=== PATIENT | female | born 1945 | race Caucasian/White ===

== ENCOUNTER 2018-10-21 17:47 | Inpatient (IN) | payer MEDICARE, OTHER ==
[2018-10-21 19:30] LABS: ADD MAN DIFF? NO
[2018-10-21 19:32] LABS: ABNORMAL IP MESSAGE 1; BASOPHILS % 0.3 % (0.0-2.0); EOSINOPHILS % 0.3 % (0.0-7.0); HEMATOCRIT 42.5 % (37.0-47.0); HEMOGLOBIN 14.5 g/dl (12.0-16.0); LYMPHOCYTES # 0.4 10^3/ul (0.8-2.9); LYMPHOCYTES % 7.3 % (15.0-51.0); MEAN CORPUSCULAR HEMOGLOBIN 29.7 pg (29.0-33.0); MEAN CORPUSCULAR HGB CONC 34.1 g/dl (32.0-37.0); MEAN CORPUSCULAR VOLUME 86.9 fl (82.0-101.0); MONOCYTE # 0.4 10^3/ul (0.3-0.9); MONOCYTES % 6.5 % (0.0-11.0); NEUTROPHIL # 5.1 10^3/ul (1.6-7.5); NEUTROPHILS % 85.1 % (39.0-77.0); PLATELET COUNT 178 10^3/UL (140-415); RED BLOOD COUNT 4.89 10^6/ul (4.20-5.40); RED CELL DISTRIBUTION WIDTH 12.6 % (11.5-14.5)
[2018-10-21 19:33] LABS: POSITIVE DIFF @See below
[2018-10-21] MEDS: morphine 2 MG INJ IV (19:38)
[2018-10-21] MEDS: ASPIRIN 81 MG TAB PO (19:38)
[2018-10-21] MEDS: ONDANSETRON 4 MG INJ IV (19:38)
[2018-10-21 19:51] LABS: ANION GAP 12 (5-13); BLOOD UREA NITROGEN 26 mg/dl (7-20); CALCIUM 10.3 mg/dl (8.4-10.2); CARBON DIOXIDE 34 mmol/L (21-31); CHLORIDE 93 mmol/L (97-110); CREATININE 0.85 mg/dl (0.44-1.00); GLUCOSE 217 mg/dl (70-220); POTASSIUM 3.2 mmol/L (3.5-5.1); SODIUM 139 mmol/L (135-144)
[2018-10-21 19:53] LABS: INR 0.97
[2018-10-21 19:54] LABS: PARTIAL THROMBOPLASTIN TIME 27.5 Sec (23.0-35.0)
[2018-10-21 20:03] LABS: TROPONIN-I < 0.012 ng/ml (0.000-0.120)
[2018-10-21] MEDS ORDERED: ACETAMINOPHEN 325 MG TAB PO ×2 (21:00→23:30)
[2018-10-21] MEDS ORDERED: ONDANSETRON 4 MG INJ IV (21:00)
[2018-10-21] MEDS ORDERED: ALBUTEROL/IPRATROPIUM (NEB) 3 ML AMP HHN (23:30)
[2018-10-21] MEDS ORDERED: NITROGLYCERIN (SL) 0.4 MG TAB SL (23:30)
[2018-10-21] MEDS ORDERED: NACL 0.9% 3 ML SYG IV (23:30)
[2018-10-21] MEDS: INSULIN GLARGINE [LANTus] (100 UNITS/ML) SYG SC (23:30)
[2018-10-22] MEDS: ACCU-CHEK XX (02:00)
[2018-10-22] MEDS ORDERED: DEXTROSE 50% 50 ML SYRINGE IV ×2 (02:30)
[2018-10-22] MEDS ORDERED: GLUCOSE GEL 15 GRAM TUBE BUCCAL (02:30)
[2018-10-22] MEDS ORDERED: GLUCOSE GEL 15 GRAM TUBE PO ×2 (02:30)
[2018-10-22] MEDS ORDERED: GLUCAGON 1 MG INJ IM (02:30)
[2018-10-22 04:02] LABS: ADD MAN DIFF? NO
[2018-10-22 04:06] LABS: BASOPHILS % 0.6 % (0.0-2.0); EOSINOPHILS % 0.4 % (0.0-7.0); HEMATOCRIT 39.9 % (37.0-47.0); HEMOGLOBIN 13.8 g/dl (12.0-16.0); LYMPHOCYTES # 0.7 10^3/ul (0.8-2.9); MEAN CORPUSCULAR HEMOGLOBIN 30.1 pg (29.0-33.0); MEAN CORPUSCULAR HGB CONC 34.6 g/dl (32.0-37.0); MEAN CORPUSCULAR VOLUME 87.1 fl (82.0-101.0); MEAN PLATELET VOLUME 11.3 fl (7.4-10.4); MONOCYTE # 0.4 10^3/ul (0.3-0.9); NEUTROPHIL # 4.1 10^3/ul (1.6-7.5); NEUTROPHILS % 77.6 % (39.0-77.0); PLATELET COUNT 141 10^3/UL (140-415); RED BLOOD COUNT 4.58 10^6/ul (4.20-5.40); RED CELL DISTRIBUTION WIDTH 12.8 % (11.5-14.5)
[2018-10-22 04:06] LABS: WHITE BLOOD COUNT 5.2 10^3/ul (4.8-10.8)
[2018-10-22 04:19] LABS: HEMOGLOBIN A1C 6.6 % (0-5.9)
[2018-10-22] MEDS: POTASSIUM CHLORIDE (SR) 20 MEQ TAB PO (04:21)
[2018-10-22 04:23] LABS: CREATINE KINASE 54 IU/L (23-200)
[2018-10-22 04:31] LABS: ALANINE AMINOTRANSFERASE 878 IU/L (13-69); ALBUMIN 4.2 g/dl (3.3-4.9); ALBUMIN/GLOBULIN RATIO 1.27; ALKALINE PHOSPHATASE 304 IU/L (42-121); ANION GAP 11 (5-13); BILIRUBIN,INDIRECT 1.3 mg/dl (0-1.1); BILIRUBIN,TOTAL 2.9 mg/dl (0.2-1.3); BLOOD UREA NITROGEN 22 mg/dl (7-20); CALCIUM 9.5 mg/dl (8.4-10.2); CARBON DIOXIDE 32 mmol/L (21-31); CHLORIDE 96 mmol/L (97-110); CHOL/HDL RATIO 3.6 RATIO; CHOLESTEROL 124 mg/dl (100-200); CREATININE 0.82 mg/dl (0.44-1.00); GLUCOSE 159 mg/dl (70-220); HDL CHOLESTEROL 34 mg/dl (33-92); LDL CHOLESTEROL,CALCULATED 66 mg/dl; MAGNESIUM 1.8 mg/dl (1.7-2.5); POTASSIUM 3.1 mmol/L (3.5-5.1); SODIUM 139 mmol/L (135-144); TOTAL PROTEIN 7.5 g/dl (6.1-8.1); TRIGLYCERIDES 118 mg/dl (0-149)
[2018-10-22 04:35] LABS: CK INDEX 1.2; CK-MB 0.65 ng/ml (0.0-2.4); TROPONIN-I < 0.012 ng/ml (0.000-0.120)
[2018-10-22 04:39] LABS: ASPARTATE AMINO TRANSFERASE 1176 IU/L (15-46)
[2018-10-22 07:16] LABS: CREATINE KINASE 54 IU/L (23-200)
[2018-10-22 07:26] LABS: CK-MB 0.55 ng/ml (0.0-2.4); TROPONIN-I < 0.012 ng/ml (0.000-0.120)
[2018-10-22] MEDS: INSULIN ASPART [NOVOLOG] 3 ML PEN SC ×5 (07:55→20:52)
[2018-10-22] MEDS: metFORMIN 500 MG TAB PO (08:13)
[2018-10-22] MEDS: DOCUSATE SODIUM 100 MG CAP PO ×4 (08:14→21:00)
[2018-10-22] MEDS: ASPIRIN 81 MG TAB PO (08:14)
[2018-10-22] MEDS: ATENOLOL 25 MG TAB PO (08:15)
[2018-10-22] MEDS: FUROSEMIDE 20 MG TAB PO (08:15)
[2018-10-22] MEDS: HEPARIN 5,000 UNIT/1 ML VIAL SC ×2 (08:15→20:59)
[2018-10-22] MEDS: ONDANSETRON 4 MG INJ IV (10:35)
[2018-10-22] MEDS ORDERED: PIPER-TAZO 3.375 GM IV (PMX) 100 ML IVPB (18:00)
[2018-10-22] MEDS: PIPER-TAZO 2.25 GM/NS 50 ML IVPB ×2 (18:30→23:22)
[2018-10-22] MEDS: ACETAMINOPHEN 650 MG SUPP PR (19:08)
[2018-10-22] MEDS: SOD CHLORIDE 0.9% 1,000 ML IV ×2 (19:52→23:22)
[2018-10-22 20:15] LABS: WHITE BLOOD COUNT 15.7 10^3/ul (4.8-10.8)
[2018-10-22 20:15] LABS: ABNORMAL IP MESSAGE 1; HEMATOCRIT 37.8 % (37.0-47.0); HEMOGLOBIN 12.9 g/dl (12.0-16.0); MEAN CORPUSCULAR HEMOGLOBIN 30.1 pg (29.0-33.0); MEAN CORPUSCULAR HGB CONC 34.1 g/dl (32.0-37.0); MEAN CORPUSCULAR VOLUME 88.1 fl (82.0-101.0); MEAN PLATELET VOLUME 11.4 fl (7.4-10.4); PLATELET COUNT 126 10^3/UL (140-415); RED BLOOD COUNT 4.29 10^6/ul (4.20-5.40)
[2018-10-22 20:28] LABS: ADD UMIC YES; UR ASCORBIC ACID NEGATIVE (NEGATIVE); UR BILIRUBIN (Dip) 1+ mg/dL (NEGATIVE); UR BLOOD (Dip) 1+ mg/dL (NEGATIVE); UR CLARITY CLEAR (CLEAR); UR COLOR AMBER (YELLOW); UR GLUCOSE (Dip) NEGATIVE (NEGATIVE); UR KETONES (Dip) NEGATIVE (NEGATIVE); UR LEUKOCYTE ESTERASE (Dip) NEGATIVE Leu/ul (NEGATIVE); UR NITRITE (Dip) NEGATIVE (NEGATIVE); UR RBC 4 /HPF (0-5); UR SPECIFIC GRAVITY (Dip) 1.016 (1.003-1.030); UR TOTAL PROTEIN (Dip) 2+ mg/dl (NEGATIVE); UR UROBILINOGEN (Dip) 2+ mg/dL (NEGATIVE); UR WBC 5 /HPF (0-5)
[2018-10-22 20:35] LABS: ALANINE AMINOTRANSFERASE 536 IU/L (13-69); ALBUMIN 3.6 g/dl (3.3-4.9); ALBUMIN/GLOBULIN RATIO 1.12; ALKALINE PHOSPHATASE 277 IU/L (42-121); ANION GAP 13 (5-13); ASPARTATE AMINO TRANSFERASE 463 IU/L (15-46); BILIRUBIN,INDIRECT 1.1 mg/dl (0-1.1); BILIRUBIN,TOTAL 4.9 mg/dl (0.2-1.3); BLOOD UREA NITROGEN 24 mg/dl (7-20); CALCIUM 8.9 mg/dl (8.4-10.2); CARBON DIOXIDE 26 mmol/L (21-31); CHLORIDE 98 mmol/L (97-110); CREATININE 1.85 mg/dl (0.44-1.00); GLUCOSE 160 mg/dl (70-220); SODIUM 137 mmol/L (135-144); TOTAL PROTEIN 6.8 g/dl (6.1-8.1)
[2018-10-22 20:41] LABS: ADD MAN DIFF? YES; POSITIVE DIFF @See below
[2018-10-22] MEDS: MAGNESIUM SULFATE 2 GM/50 ML 50 ML IVPB (20:50)
[2018-10-22 20:51] LABS: POTASSIUM 2.9 mmol/L (3.5-5.1)
[2018-10-22 21:06] LABS: ANISOCYTOSIS 1+ (0-0); BAND NEUTROPHILS #M 2.6 10^3/ul (0.0-0.6); BAND NEUTROPHILS % (M) 17 % (0-4); GIANT THROMBO% (M) 5 % (0-0); LYMPHOCYTES #M 0.6 10^3/ul (0.8-2.9); LYMPHOCYTES % (M) 4 % (15-51); METAMYELOCYTES #M 0.1 10^3/ul (0.0-0.0); METAMYELOCYTES %M 1 % (0-0); MICROCYTOSIS 1+ (0-0); MONOCYTE #M 0.3 10^3/ul (0.3-0.9); MONOCYTES % (M) 2 % (0-11); PLATELET ESTIMATE NORMAL; SEG NEUT #M 12.3 10^3/ul (1.6-7.5); SEGMENTED NEUTROPHILS (M) % 76 % (39-77); SMUDGE%M 42 % (0-0)
[2018-10-22] MEDS: NS + KCL 20 MEQ 1,000 ML IV (21:10)
[2018-10-22] MEDS: INSULIN GLARGINE [LANTus] (100 UNITS/ML) SYG SC (21:36)
[2018-10-22] MEDS: POTASSIUM CHLORIDE 100 ML IVPB ×2 (22:25→23:22)
[2018-10-23] MEDS: SOD CHLORIDE 0.9% 500 ML IV (00:16)
[2018-10-23] MEDS: NORepinephrine 8MG/250 ML (PMX 250 ML IV (01:45)
[2018-10-23] MEDS: ACCU-CHEK XX (02:00)
[2018-10-23 05:30] LABS: ABNORMAL IP MESSAGE 1; HEMATOCRIT 36.8 % (37.0-47.0); HEMOGLOBIN 12.4 g/dl (12.0-16.0); MEAN CORPUSCULAR HGB CONC 33.7 g/dl (32.0-37.0); MEAN CORPUSCULAR VOLUME 89.1 fl (82.0-101.0); MEAN PLATELET VOLUME 11.7 fl (7.4-10.4); PLATELET COUNT 107 10^3/UL (140-415); RED BLOOD COUNT 4.13 10^6/ul (4.20-5.40); RED CELL DISTRIBUTION WIDTH 13.4 % (11.5-14.5)
[2018-10-23] MEDS: PIPER-TAZO 2.25 GM/NS 50 ML IVPB ×4 (05:36→23:39)
[2018-10-23 05:50] LABS: ADD MAN DIFF? YES; POSITIVE DIFF @See below
[2018-10-23 06:15] LABS: ANION GAP 13 (5-13); BLOOD UREA NITROGEN 28 mg/dl (7-20); CALCIUM 8.2 mg/dl (8.4-10.2); CARBON DIOXIDE 22 mmol/L (21-31); CHLORIDE 106 mmol/L (97-110); CREATININE 2.49 mg/dl (0.44-1.00); GLUCOSE 125 mg/dl (70-220); POTASSIUM 3.8 mmol/L (3.5-5.1); SODIUM 141 mmol/L (135-144)
[2018-10-23] MEDS: INSULIN ASPART [NOVOLOG] 3 ML PEN SC ×4 (07:35→20:19)
[2018-10-23] MEDS: ATENOLOL 25 MG TAB PO (09:00)
[2018-10-23] MEDS: HEPARIN 5,000 UNIT/1 ML VIAL SC ×2 (09:47→21:22)
[2018-10-23] MEDS: ASPIRIN 81 MG TAB PO (09:50)
[2018-10-23] MEDS: DOCUSATE SODIUM 100 MG CAP PO ×3 (09:50→20:39)
[2018-10-23] MEDS: FUROSEMIDE 20 MG TAB PO (09:50)
[2018-10-23] MEDS: metFORMIN 500 MG TAB PO (09:57)
[2018-10-23 10:48] LABS: ANISOCYTOSIS 1+ (0-0); BAND NEUTROPHILS #M 7.6 10^3/ul (0.0-0.6); BAND NEUTROPHILS % (M) 40 % (0-4); LYMPHOCYTES #M 0.7 10^3/ul (0.8-2.9); LYMPHOCYTES % (M) 4 % (15-51); METAMYELOCYTES #M 0.3 10^3/ul (0.0-0.0); METAMYELOCYTES %M 2 % (0-0); MONOCYTE #M 0.7 10^3/ul (0.3-0.9); MONOCYTES % (M) 4 % (0-11); MYELOCYTES #M 0.1 10^3/ul (0.0-0.0); MYELOCYTES % (M) 1 % (0-0); PLATELET ESTIMATE DECREASED; SEG NEUT #M 10.8 10^3/ul (1.6-7.5); SEGMENTED NEUTROPHILS (M) % 49 % (39-77); SMUDGE%M 3 % (0-0)
[2018-10-23] MEDS: NS + KCL 20 MEQ 1,000 ML IV ×3 (11:04→21:20)
[2018-10-23] MEDS: LIDOCAINE 1% (MPF) 5 ML VIAL SC (15:00)
[2018-10-23] MEDS: INSULIN GLARGINE [LANTus] (100 UNITS/ML) SYG SC ×2 (15:15→20:21)
[2018-10-24] MEDS: ACCU-CHEK XX (01:55)
[2018-10-24] MEDS: PIPER-TAZO 2.25 GM/NS 50 ML IVPB ×4 (05:14→23:35)
[2018-10-24 06:13] LABS: WHITE BLOOD COUNT 12.6 10^3/ul (4.8-10.8)
[2018-10-24 06:13] LABS: ABNORMAL IP MESSAGE 1; HEMATOCRIT 32.7 % (37.0-47.0); HEMOGLOBIN 10.7 g/dl (12.0-16.0); MEAN CORPUSCULAR HEMOGLOBIN 29.7 pg (29.0-33.0); MEAN CORPUSCULAR HGB CONC 32.7 g/dl (32.0-37.0); MEAN CORPUSCULAR VOLUME 90.8 fl (82.0-101.0); MEAN PLATELET VOLUME 12.3 fl (7.4-10.4); PLATELET COUNT 73 10^3/UL (140-415); RED CELL DISTRIBUTION WIDTH 13.6 % (11.5-14.5)
[2018-10-24 06:30] LABS: ANION GAP 9 (5-13); BLOOD UREA NITROGEN 39 mg/dl (7-20); CALCIUM 8.2 mg/dl (8.4-10.2); CARBON DIOXIDE 22 mmol/L (21-31); CHLORIDE 112 mmol/L (97-110); CREATININE 2.99 mg/dl (0.44-1.00); GLUCOSE 96 mg/dl (70-220); MAGNESIUM 2.2 mg/dl (1.7-2.5); POTASSIUM 3.5 mmol/L (3.5-5.1); SODIUM 143 mmol/L (135-144)
[2018-10-24 07:05] LABS: ADD MAN DIFF? YES; POSITIVE DIFF @See below
[2018-10-24] MEDS: NS + KCL 20 MEQ 1,000 ML IV (07:21)
[2018-10-24] MEDS: INSULIN ASPART [NOVOLOG] 3 ML PEN SC ×4 (07:35→20:56)
[2018-10-24] MEDS: metFORMIN 500 MG TAB PO (07:35)
[2018-10-24] MEDS: HEPARIN 5,000 UNIT/1 ML VIAL SC ×2 (09:00→20:52)
[2018-10-24] MEDS: ATENOLOL 25 MG TAB PO (09:00)
[2018-10-24] MEDS: DOCUSATE SODIUM 100 MG CAP PO ×3 (09:00→20:50)
[2018-10-24] MEDS: ASPIRIN 81 MG TAB PO (09:00)
[2018-10-24 09:53] LABS: ANISOCYTOSIS 3+ (0-0); BAND NEUTROPHILS #M 1.3 10^3/ul (0.0-0.6); BAND NEUTROPHILS % (M) 11 % (0-4); BURR CELLS 1+ (0-0); EOSINOPHILS % (M) 1 % (0-7); LYMPHOCYTES #M 1.2 10^3/ul (0.8-2.9); LYMPHOCYTES % (M) 10 % (15-51); MICROCYTOSIS 3+ (0-0); MONOCYTE #M 0.3 10^3/ul (0.3-0.9); MONOCYTES % (M) 3 % (0-11); MYELOCYTES #M 0.1 10^3/ul (0.0-0.0); MYELOCYTES % (M) 1 % (0-0); PLATELET ESTIMATE SIG DECREASED; POIKILOCYTOSIS 2+ (0-0); POLYCHROMASIA 1+ (0-0); SEG NEUT #M 9.5 10^3/ul (1.6-7.5); SEGMENTED NEUTROPHILS (M) % 74 % (39-77); SMUDGE%M 2 % (0-0)
[2018-10-24 11:16] LABS: ALANINE AMINOTRANSFERASE 260 IU/L (13-69); ALBUMIN 2.6 g/dl (3.3-4.9); ALKALINE PHOSPHATASE 173 IU/L (42-121); ASPARTATE AMINO TRANSFERASE 90 IU/L (15-46); BILIRUBIN,INDIRECT 0.8 mg/dl (0-1.1); BILIRUBIN,TOTAL 0.8 mg/dl (0.2-1.3); TOTAL PROTEIN 5.1 g/dl (6.1-8.1)
[2018-10-24] MEDS: INSULIN GLARGINE [LANTus] (100 UNITS/ML) SYG SC (19:47)
[2018-10-25] MEDS: ACCU-CHEK XX (02:00)
[2018-10-25] MEDS: PIPER-TAZO 2.25 GM/NS 50 ML IVPB ×3 (05:12→18:10)
[2018-10-25 05:38] LABS: ADD MAN DIFF? NO
[2018-10-25 05:45] LABS: ABNORMAL IP MESSAGE 1; BASOPHILS % 0.4 % (0.0-2.0); EOSINOPHILS # 0.1 10^3/ul (0.0-0.5); EOSINOPHILS % 0.5 % (0.0-7.0); HEMATOCRIT 32.3 % (37.0-47.0); LYMPHOCYTES # 0.8 10^3/ul (0.8-2.9); MEAN CORPUSCULAR HEMOGLOBIN 30.2 pg (29.0-33.0); MEAN CORPUSCULAR HGB CONC 34.1 g/dl (32.0-37.0); MEAN CORPUSCULAR VOLUME 88.7 fl (82.0-101.0); MEAN PLATELET VOLUME 12.2 fl (7.4-10.4); MONOCYTE # 0.5 10^3/ul (0.3-0.9); NEUTROPHILS % 85.2 % (39.0-77.0); PLATELET COUNT 80 10^3/UL (140-415); RED BLOOD COUNT 3.64 10^6/ul (4.20-5.40)
[2018-10-25 05:45] LABS: WHITE BLOOD COUNT 9.4 10^3/ul (4.8-10.8)
[2018-10-25 05:59] LABS: POSITIVE DIFF @See below
[2018-10-25 06:18] LABS: ALANINE AMINOTRANSFERASE 164 IU/L (13-69); ALBUMIN/GLOBULIN RATIO 1.03; ALKALINE PHOSPHATASE 152 IU/L (42-121); ANION GAP 8 (5-13); ASPARTATE AMINO TRANSFERASE 45 IU/L (15-46); BILIRUBIN,INDIRECT 0.9 mg/dl (0-1.1); BILIRUBIN,TOTAL 0.9 mg/dl (0.2-1.3); BLOOD UREA NITROGEN 36 mg/dl (7-20); CALCIUM 8.8 mg/dl (8.4-10.2); CARBON DIOXIDE 25 mmol/L (21-31); CHLORIDE 108 mmol/L (97-110); CREATININE 1.98 mg/dl (0.44-1.00); GLUCOSE 74 mg/dl (70-220); SODIUM 141 mmol/L (135-144); TOTAL PROTEIN 5.9 g/dl (6.1-8.1)
[2018-10-25 06:20] LABS: POTASSIUM 2.9 mmol/L (3.5-5.1)
[2018-10-25] MEDS: POTASSIUM CHLORIDE 100 ML IVPB ×2 (07:29→10:37)
[2018-10-25] MEDS: INSULIN ASPART [NOVOLOG] 3 ML PEN SC ×4 (07:35→20:55)
[2018-10-25] MEDS: metFORMIN 500 MG TAB PO (07:35)
[2018-10-25 07:55] LABS: MAGNESIUM 2.1 mg/dl (1.7-2.5)
[2018-10-25] MEDS: DOCUSATE SODIUM 100 MG CAP PO ×3 (08:46→20:54)
[2018-10-25] MEDS: ASPIRIN 81 MG TAB PO (08:46)
[2018-10-25] MEDS: HEPARIN 5,000 UNIT/1 ML VIAL SC (08:50)
[2018-10-25] MEDS: ATENOLOL 25 MG TAB PO (09:00)
[2018-10-25] MEDS: POTASSIUM CHLORIDE (SR) 20 MEQ TAB PO (12:49)
[2018-10-25] MEDS: ONDANSETRON 4 MG INJ IV (12:58)
[2018-10-25 18:20] LABS: POTASSIUM 3.6 mmol/L (3.5-5.1)
[2018-10-25] MEDS: INSULIN GLARGINE [LANTus] (100 UNITS/ML) SYG SC (20:54)
[2018-10-26] MEDS: PIPER-TAZO 2.25 GM/NS 50 ML IVPB ×4 (00:47→17:40)
[2018-10-26] MEDS: ACCU-CHEK XX (02:00)
[2018-10-26] MEDS: INSULIN ASPART [NOVOLOG] 3 ML PEN SC ×4 (07:29→19:57)
[2018-10-26] MEDS: ATENOLOL 25 MG TAB PO (08:17)
[2018-10-26] MEDS: ASPIRIN 81 MG TAB PO (08:17)
[2018-10-26] MEDS: DOCUSATE SODIUM 100 MG CAP PO ×3 (08:17→19:58)
[2018-10-26 11:12] LABS: ALANINE AMINOTRANSFERASE 94 IU/L (13-69); ALBUMIN 3.1 g/dl (3.3-4.9); ALBUMIN/GLOBULIN RATIO 0.93; ALKALINE PHOSPHATASE 156 IU/L (42-121); ANION GAP 6 (5-13); ASPARTATE AMINO TRANSFERASE 24 IU/L (15-46); BILIRUBIN,INDIRECT 0.8 mg/dl (0-1.1); BILIRUBIN,TOTAL 0.8 mg/dl (0.2-1.3); BLOOD UREA NITROGEN 28 mg/dl (7-20); CALCIUM 8.7 mg/dl (8.4-10.2); CARBON DIOXIDE 26 mmol/L (21-31); CHLORIDE 106 mmol/L (97-110); CREATININE 1.38 mg/dl (0.44-1.00); GLUCOSE 109 mg/dl (70-220); POTASSIUM 3.4 mmol/L (3.5-5.1); SODIUM 138 mmol/L (135-144); TOTAL PROTEIN 6.4 g/dl (6.1-8.1)
[2018-10-26] MEDS: POTASSIUM CHLORIDE (SR) 20 MEQ TAB PO (15:35)
[2018-10-26] MEDS: INSULIN GLARGINE [LANTus] (100 UNITS/ML) SYG SC (20:17)
[2018-10-27] MEDS: PIPER-TAZO 2.25 GM/NS 50 ML IVPB ×3 (01:16→12:13)
[2018-10-27] MEDS: ACCU-CHEK XX (03:07)
[2018-10-27] MEDS: INSULIN ASPART [NOVOLOG] 3 ML PEN SC ×2 (07:48→11:45)
[2018-10-27] MEDS: ASPIRIN 81 MG TAB PO (08:10)
[2018-10-27] MEDS: DOCUSATE SODIUM 100 MG CAP PO ×2 (08:10→12:13)
[2018-10-27] MEDS: ATENOLOL 25 MG TAB PO (08:11)
== END 2018-10-27 16:45 | disposition home or self-care (01) | DRG 871 ==
LOC: TEL 20:50 → 6WM 10-25 16:30 → E/R 17:47 → ICU 10-22 01:52
DX: A41.9 Sepsis, unspecified organism (principal); R65.21 Severe sepsis with septic shock; N17.0 Acute kidney failure with tubular necrosis; G93.41 Metabolic encephalopathy; K81.0 Acute cholecystitis; I48.91 Unspecified atrial fibrillation; E11.9 Type 2 diabetes mellitus without complications
CPT/HCPCS: 36415; 70450; 70551; 71045; 74176; 74181; 76705; 78226; 80048; 80053; 80061; 80076; 81001; 82550; 82553; 82962; 83036; 83735; 84132; 84443; 84484; 85025; 85610; 85730; 87040-91; 87081; 87086; 92610; 93005; 93306; 93880; 96374; 96375; 99217; 99285-25; G0378